=== PATIENT | female | born 1990 | race African-American/Black ===

== ENCOUNTER 2017-03-01 20:30 | Emergency (ER) | payer MEDICAID ==
[~2017-03-01] VITALS: Ht 160 cm; Wt 69.0 kg
[2017-03-01 21:05] VITALS: BP 114/72
[2017-03-01] MEDS ORDERED: KETOROLAC 60MG/2ML VIAL IM ONE (23:00)
== END 2017-03-02 00:31 | disposition home or self-care (01) ==
LOC: ER 21:46
DX: S39.012A Strain of muscle, fascia and tendon of lower back, initial encounter (principal); R51 Headache; Z98.890 Other specified postprocedural states; V89.2XXA Person injured in unspecified motor-vehicle accident, traffic, initial encounter; Y93.89 Activity, other specified; Y99.8 Other external cause status; Y92.410 Unspecified street and highway as the place of occurrence of the external cause
CPT/HCPCS: 96372; 99283; J1885; Z7610